=== PATIENT | female | born 1955 | race Two or more races ===

== ENCOUNTER 2020-09-25 16:40 | Inpatient (IN) | payer BC, MEDICAID ==
[~2020-09-25] VITALS: Ht 157.5 cm; Wt 115.0 kg
[2020-09-25] MEDS ORDERED: SODIUM CHLORIDE 0.9% 1,000 ML IVB ONE (17:30)
[2020-09-25] MEDS ORDERED: AZITHROMYCIN 500MG/ 250ML 250 ML IV ONE (18:00)
[2020-09-25] MEDS ORDERED: ACETAMINOPHEN 325 MG TAB PO ONE (18:00)
[2020-09-25] MEDS ORDERED: ASCORBIC ACID 500 MG TAB PO ONE (18:15)
[2020-09-25] MEDS ORDERED: ZINC SULFATE 220mg CAP or TAB PO ONE (18:15)
[2020-09-25] MEDS ORDERED: DexAMETHasone SOD PHOS 10MG/1ML VIAL INJ IV ONE (18:15)
[2020-09-25 18:38] LABS: Basophils # (auto) 0 10 ^3/uL (0-0.2); Basophils % (auto) 0.2 % (0.0-2.0); Eosinophils # (auto) 0 10 ^3/uL (0-0.8); Hemoglobin 10.7 g/dL (12.2-16.2); Lymphocytes # (auto) 0.8 10 ^3/uL (0.4-5.4); Lymphocytes % (auto) 11.3 % (10.0-50.0); Mean Corpuscular Hemoglobin 28.4 pg (28.0-32.0); Mean Corpuscular Hgb Conc. 34.6 g/dL (32.0-36.0); Mean Corpuscular Volume 82.1 fL (80.0-100.0); Monocytes # (auto) 0.3 10 ^3/uL (0-1.3); Neutrophils # (auto) 5.7 10 ^3/uL (1.6-8.6); Neutrophils % (auto) 83.5 % (37.0-80.0); Nucleated Red Blood Cells % 0.1 %; Platelet Count (auto) 316 10^3/uL (140-450); Red Blood Cells 3.78 10^6/uL (4.0-5.20); Red Cell Distribution Width 14.1 % (11.8-14.3); White Blood Cell 6.8 10^3/uL (4.4-10.8)
[2020-09-25 18:47] LABS: Albumin 2.5 g/dL (3.4-5.0); Anion Gap 7 (5-15); Blood Urea Nitrogen 14 mg/dL (7-18); Carbon Dioxide 24 mmol/L (21-32); Chloride 95 mmol/L (98-107); Glucose 325 mg/dL (74-106); Magnesium 2.3 mg/dL (1.6-2.6); Sodium 126 mmol/L (136-145)
[2020-09-25 18:53] LABS: Alanine Aminotransferase 28 U/L (13-56); Alkaline Phosphatase 46 U/L (45-117); Aspartate Aminotransferase 60 U/L (15-37); BUN/Creatinine Ratio 16.5; Bilirubin, Total 0.4 mg/dL (0.2-1.0); GFR African American 86 mL/min; GFR Non-African American 71 mL/min; Total Protein 7.1 g/dL (6.4-8.2)
[2020-09-25 18:56] LABS: Partial Thromboplastin Time 31.1 sec (23.0-31.2)
[2020-09-25] MEDS ORDERED: DEXTROSE (50%) 50ML SYRG IV PRN (21:00)
[2020-09-25] MEDS ORDERED: TEMAZEPAM 15 MG CAP PO PRN (21:00)
[2020-09-25] MEDS ORDERED: ONDANSETRON HCL 4 MG/2 ML VIAL IV PRN (21:00)
[2020-09-25] MEDS ORDERED: ACETAMINOPHEN 325 MG TAB PO PRN (21:00)
[2020-09-25] MEDS ORDERED: MORPHINE SULF INJ 2 MG/ML SYRINGE 1ML IV PRN (21:00)
[2020-09-25] MEDS ORDERED: REMDESIVIR PER PHARMACY 0 ML IV SCH (21:00)
[2020-09-25] MEDS ORDERED: SODIUM CHLORIDE 0.9% 1,000 ML IV SCH (21:00)
[2020-09-25] MEDS ORDERED: NITROGLYCERIN 0.4 MG SL TAB SL PRN (21:00)
[2020-09-25 21:35] LABS: CRP High Sensitivity 12.5 mg/dL (< 0.3)
[2020-09-25] MEDS ORDERED: REMDESIVIR 200 MG in NS 210ml LOADING DOSE ADULT IV ONE (22:00)
[2020-09-25] MEDS ORDERED: ATORVASTATIN 20 MG TAB PO SCH (22:00)
[2020-09-25] MEDS: FAMOTIDINE 20 MG TAB PO SCH (22:51)
[2020-09-25] MEDS: METOPROLOL TARTRATE 25 MG TAB PO SCH (22:51)
[2020-09-25] MEDS: ENOXAPARIN SOD 40 MG/0.4 ML SYRINGE SC SCH (22:51)
[2020-09-26] MEDS: ACCU-CHEK COMFORT CURVE STRIP VI SCH ×5 (01:17→18:16)
[2020-09-26] MEDS: InsuLIN REG 1unit/0.01ml Soln (100units/ml) SC SCH ×4 (01:20→18:15)
[2020-09-26] MEDS ORDERED: INSU100I49 SC (04:56)
[2020-09-26] MEDS ORDERED: METF-370 PO (04:56)
[2020-09-26] MEDS ORDERED: GLIP5TAB12 PO (05:53)
[2020-09-26 06:03] LABS: Basophils # (auto) 0 10 ^3/uL (0-0.2); Basophils % (auto) 0.2 % (0.0-2.0); Eosinophils # (auto) 0 10 ^3/uL (0-0.8); Hematocrit 31.9 % (36.0-46.0); Hemoglobin 10.9 g/dL (12.2-16.2); Lymphocytes # (auto) 0.6 10 ^3/uL (0.4-5.4); Lymphocytes % (auto) 8.3 % (10.0-50.0); Mean Corpuscular Hemoglobin 28.2 pg (28.0-32.0); Mean Corpuscular Hgb Conc. 34.3 g/dL (32.0-36.0); Mean Corpuscular Volume 82.2 fL (80.0-100.0); Monocytes # (auto) 0.3 10 ^3/uL (0-1.3); Neutrophils # (auto) 6.7 10 ^3/uL (1.6-8.6); Neutrophils % (auto) 87.5 % (37.0-80.0); Nucleated Red Blood Cells % 0.1 %; Platelet Count (auto) 335 10^3/uL (140-450); Red Blood Cells 3.88 10^6/uL (4.0-5.20); Red Cell Distribution Width 14.5 % (11.8-14.3); White Blood Cell 7.6 10^3/uL (4.4-10.8)
[2020-09-26 06:31] LABS: Potassium 4.1 mmol/L (3.5-5.1)
[2020-09-26 06:40] LABS: Albumin 2.2 g/dL (3.4-5.0); BUN/Creatinine Ratio 20.6; Bilirubin, Total 0.3 mg/dL (0.2-1.0); Calcium 8.1 mg/dL (8.5-10.1); Total Protein 6.8 g/dL (6.4-8.2)
[2020-09-26 08:00] VITALS: BP 130/60
[2020-09-26] MEDS: CHOLECALCIFEROL (VITD3) 2,000 UNIT CAP PO SCH (09:59)
[2020-09-26] MEDS ORDERED: amLODIPine BESYLATE 5 MG TAB PO SCH (10:00)
[2020-09-26] MEDS ORDERED: ASPirin 81 mg TAB PO SCH (10:00)
[2020-09-26] MEDS: ASCORBIC ACID 1,000 MG TAB PO SCH (10:00)
[2020-09-26] MEDS ORDERED: FUROSEMIDE 40 MG TAB PO SCH (10:00)
[2020-09-26] MEDS: AZITHROMYCIN 500MG/ 250ML 250 ML IV SCH (10:01)
[2020-09-26] MEDS: FAMOTIDINE 20 MG TAB PO SCH (10:05)
[2020-09-26] MEDS: METOPROLOL TARTRATE 25 MG TAB PO SCH (10:06)
[2020-09-26] MEDS: DexAMETHasone SOD PHOS 10MG/1ML VIAL INJ IV SCH (10:06)
[2020-09-26] MEDS: ZINC SULFATE 220mg CAP or TAB PO SCH (10:06)
[2020-09-26] MEDS: ENOXAPARIN SOD 40 MG/0.4 ML SYRINGE SC SCH (11:56)
[2020-09-26] MEDS ORDERED: FUROSEMIDE 20 MG/2 ML VIAL IV ONE (13:00)
[2020-09-26] MEDS ORDERED: POTASSIUM CHL 20 Meq TABLET PO ONE (13:00)
[2020-09-26] MEDS ORDERED: DEXTROSE (50%) 50ML SYRG IV PRN (13:00)
[2020-09-26 15:50] VITALS: BP 119/65
[2020-09-26] MEDS: REMDESIVIR 100mg 100 MG in SODIUM CHL 0.9% 230 ML IV SCH (16:11)
[2020-09-26] MEDS: ALBUTEROL SULF HFA 90MCG INH 200DOSE IN PRN (20:01)
[2020-09-26] MEDS: ENOXAPARIN SOD 100 MG/1 ML SYRINGE SC SCH (21:42)
[2020-09-26 22:55] LABS: Urine Bacteria FEW /hpf (None Seen); Urine Blood Negative /uL (Negative); Urine Hyaline Cast FEW /lpf (0 - 2); Urine Specific Gravity 1.008 (1.001-1.035); Urine WBC 3 /hpf (0 - 5)
[2020-09-27] VITALS: BP 120/50
[2020-09-27] MEDS: ACCU-CHEK COMFORT CURVE STRIP VI SCH ×10 (00:06→23:40)
[2020-09-27] MEDS: InsuLIN REG 1unit/0.01ml Soln (100units/ml) SC SCH ×5 (00:11→23:33)
[2020-09-27 06:22] LABS: Hematocrit 31.3 % (36.0-46.0); Hemoglobin 10.7 g/dL (12.2-16.2); Mean Corpuscular Hemoglobin 27.9 pg (28.0-32.0); Mean Corpuscular Hgb Conc. 34.1 g/dL (32.0-36.0); Platelet Count (auto) 390 10^3/uL (140-450); Red Blood Cells 3.82 10^6/uL (4.0-5.20); Red Cell Distribution Width 14.3 % (11.8-14.3); White Blood Cell 9.6 10^3/uL (4.4-10.8)
[2020-09-27 06:31] LABS: Basophils % (manual) 0 (0.0-2.0); Blast Cells 0; Eosinophils % (manual) 0 (0-7); Promyelocytes % 0; Reactive Lymphocytes 0
[2020-09-27 06:50] LABS: Potassium 3.8 mmol/L (3.5-5.1)
[2020-09-27 07:06] LABS: BUN/Creatinine Ratio 26.1; Calcium 8.4 mg/dL (8.5-10.1)
[2020-09-27 07:30] VITALS: BP 114/70
[2020-09-27 07:42] LABS: Band Neutrophils % (manual) 10; Lymphocytes % (manual) 14 (10.0-50.0); Metamyelocytes % 1; Monocytes % (manual) 6 (0-12); Myelocytes % 1
[2020-09-27] MEDS ORDERED: FUROSEMIDE 40 MG/4 ML VIAL ONE (09:59)
[2020-09-27] MEDS: FUROSEMIDE 20 MG/2 ML VIAL IV SCH (10:00)
[2020-09-27] MEDS: ASCORBIC ACID 1,000 MG TAB PO SCH (10:05)
[2020-09-27] MEDS: AZITHROMYCIN 500MG/ 250ML 250 ML IV SCH (10:05)
[2020-09-27] MEDS: POTASSIUM CHL 20 Meq TABLET PO SCH (10:05)
[2020-09-27] MEDS: ZINC SULFATE 220mg CAP or TAB PO SCH (10:05)
[2020-09-27] MEDS: DexAMETHasone SOD PHOS 10MG/1ML VIAL INJ IV SCH (10:06)
[2020-09-27] MEDS: ENOXAPARIN SOD 100 MG/1 ML SYRINGE SC SCH ×2 (10:07→23:31)
[2020-09-27] MEDS: CHOLECALCIFEROL (VITD3) 2,000 UNIT CAP PO SCH (11:44)
[2020-09-27] MEDS ORDERED: methylPREDNISolone SOD SUCC 40 MG/ML VL IV ONE (13:00)
[2020-09-27] MEDS ORDERED: ACETAMINOPHEN 650 mg PER 20.3 mL UD PO ONE (13:00)
[2020-09-27] MEDS ORDERED: diphenhdrAMINE HCL 50 MG/1 ML VL IV ONE (13:00)
[2020-09-27] MEDS ORDERED: TOCILIZUMAB 400 MG in SODIUM CHL 0.9% 80 ML IV ONE (14:00)
[2020-09-27] MEDS: REMDESIVIR 100mg 100 MG in SODIUM CHL 0.9% 230 ML IV SCH (15:18)
[2020-09-27] MEDS ORDERED: TRAZ50TA2 PO (15:42)
[2020-09-27] MEDS ORDERED: ALEN35TA18 PO ×2 (15:43→16:42)
[2020-09-27] MEDS ORDERED: ENAL2.5T7 PO (15:45)
[2020-09-27 16:00] VITALS: BP 140/52
[2020-09-27] MEDS ORDERED: ATOR40TA52 PO (16:20)
[2020-09-27] MEDS ORDERED: ENAL20TA8 PO (16:20)
[2020-09-27] MEDS ORDERED: INSU100I43 SC (16:22)
[2020-09-27] MEDS ORDERED: INSUINJ37 SC (16:22)
[2020-09-27] MEDS ORDERED: GLIP10TA9 PO (16:22)
[2020-09-27] MEDS ORDERED: METF-372 PO (16:23)
[2020-09-27] MEDS ORDERED: ALBUAER3 IN (16:23)
[2020-09-27] MEDS ORDERED: ASPI-266 PO (16:24)
[2020-09-27] MEDS ORDERED: CHOL20009 PO (16:25)
[2020-09-27] MEDS ORDERED: AMLO-489 PO (16:25)
[2020-09-27] MEDS ORDERED: MET25T PO (16:26)
[2020-09-27] MEDS ORDERED: FAMO-12 PO (16:26)
[2020-09-27] MEDS ORDERED: FURO40TA4 PO (16:26)
[2020-09-27] MEDS ORDERED: CALC500T6 PO (16:28)
[2020-09-27] MEDS: ALBUTEROL SULF HFA 90MCG INH 200DOSE IN PRN (22:12)
[2020-09-28] VITALS: BP 126/66
[2020-09-28 00:29] VITALS: BP 126/66
[2020-09-28 00:46] VITALS: BP 125/64
[2020-09-28 02:07] VITALS: BP 128/60
[2020-09-28] MEDS: InsuLIN REG 1unit/0.01ml Soln (100units/ml) SC SCH ×3 (05:41→17:50)
[2020-09-28] MEDS: ACCU-CHEK COMFORT CURVE STRIP VI SCH ×5 (05:41→17:32)
[2020-09-28 08:00] VITALS: BP 114/54
[2020-09-28] MEDS ORDERED: diphenhdrAMINE HCL 50 MG/1 ML VL IV ONE (10:00)
[2020-09-28] MEDS ORDERED: ACETAMINOPHEN 650 mg PER 20.3 mL UD PO ONE (10:00)
[2020-09-28] MEDS: FUROSEMIDE 20 MG/2 ML VIAL IV SCH (10:28)
[2020-09-28] MEDS: POTASSIUM CHL 20 Meq TABLET PO SCH (10:29)
[2020-09-28] MEDS: DexAMETHasone SOD PHOS 10MG/1ML VIAL INJ IV SCH (10:29)
[2020-09-28] MEDS: AZITHROMYCIN 500MG/ 250ML 250 ML IV SCH (10:29)
[2020-09-28] MEDS: ZINC SULFATE 220mg CAP or TAB PO SCH (10:29)
[2020-09-28] MEDS: ASCORBIC ACID 1,000 MG TAB PO SCH (10:30)
[2020-09-28] MEDS: CHOLECALCIFEROL (VITD3) 2,000 UNIT CAP PO SCH (10:30)
[2020-09-28] MEDS ORDERED: TOCILIZUMAB 400 MG in SODIUM CHL 0.9% 80 ML IV ONE (10:30)
[2020-09-28] MEDS: ENOXAPARIN SOD 100 MG/1 ML SYRINGE SC SCH (10:30)
[2020-09-28] MEDS: ALBUTEROL SULF HFA 90MCG INH 200DOSE IN PRN ×2 (11:34→20:24)
[2020-09-28] MEDS: REMDESIVIR 100mg 100 MG in SODIUM CHL 0.9% 230 ML IV SCH (14:48)
[2020-09-28 16:00] VITALS: BP 132/68
[2020-09-28] MEDS: guaiFENesin-CODEINE Liq 5 ML UD PO PRN (16:03)
[2020-09-28] MEDS ORDERED: DEXTROSE (50%) 50ML SYRG IV PRN (16:15)
[2020-09-29] VITALS: BP 156/82
[2020-09-29] MEDS: ENOXAPARIN SOD 100 MG/1 ML SYRINGE SC SCH ×3 (00:14→23:01)
[2020-09-29] MEDS: ACCU-CHEK COMFORT CURVE STRIP VI SCH ×5 (00:14→23:01)
[2020-09-29] MEDS: INSULIN LANTUS (GLARGINE) 1 /0.01ml (100units/ml) SC SCH ×3 (00:17→23:04)
[2020-09-29] MEDS: InsuLIN REG 1unit/0.01ml Soln (100units/ml) SC SCH ×5 (00:17→23:04)
[2020-09-29] MEDS: ALBUTEROL SULF HFA 90MCG INH 200DOSE IN PRN ×2 (07:19→19:34)
[2020-09-29 08:00] VITALS: BP 129/63
[2020-09-29 08:44] LABS: Hematocrit 32.1 % (36.0-46.0); Mean Corpuscular Hemoglobin 28.2 pg (28.0-32.0); Mean Corpuscular Hgb Conc. 34.4 g/dL (32.0-36.0); Mean Corpuscular Volume 81.9 fL (80.0-100.0); Platelet Count (auto) 501 10^3/uL (140-450); Red Blood Cells 3.92 10^6/uL (4.0-5.20); Red Cell Distribution Width 14.2 % (11.8-14.3); White Blood Cell 8.2 10^3/uL (4.4-10.8)
[2020-09-29 08:53] LABS: Band Neutrophils % (manual) 0; Basophils % (manual) 0 (0.0-2.0); Blast Cells 0; Eosinophils % (manual) 0 (0-7); Reactive Lymphocytes 0
[2020-09-29 09:04] LABS: Albumin 2.3 g/dL (3.4-5.0); Calcium 8.8 mg/dL (8.5-10.1); Potassium 3.7 mmol/L (3.5-5.1)
[2020-09-29 09:07] LABS: BUN/Creatinine Ratio 41.2; Bilirubin, Total 0.4 mg/dL (0.2-1.0); Total Protein 6.6 g/dL (6.4-8.2)
[2020-09-29] MEDS: DexAMETHasone SOD PHOS 10MG/1ML VIAL INJ IV SCH (09:08)
[2020-09-29] MEDS: POTASSIUM CHL 20 Meq TABLET PO SCH (09:09)
[2020-09-29] MEDS: ZINC SULFATE 220mg CAP or TAB PO SCH (09:09)
[2020-09-29] MEDS: ASCORBIC ACID 1,000 MG TAB PO SCH (09:09)
[2020-09-29] MEDS: FUROSEMIDE 20 MG/2 ML VIAL IV SCH (09:09)
[2020-09-29] MEDS: AZITHROMYCIN 500MG/ 250ML 250 ML IV SCH (09:09)
[2020-09-29] MEDS: CHOLECALCIFEROL (VITD3) 2,000 UNIT CAP PO SCH (09:10)
[2020-09-29] MEDS: guaiFENesin-CODEINE Liq 5 ML UD PO PRN (09:11)
[2020-09-29 09:48] LABS: Lymphocytes % (manual) 16 (10.0-50.0); Metamyelocytes % 2; Monocytes % (manual) 4 (0-12); Myelocytes % 1; Promyelocytes % 1
[2020-09-29] MEDS: REMDESIVIR 100mg 100 MG in SODIUM CHL 0.9% 230 ML IV SCH (14:52)
[2020-09-29 16:23] VITALS: BP 139/79
[2020-09-30 00:03] VITALS: BP 135/69
[2020-09-30] MEDS: ACCU-CHEK COMFORT CURVE STRIP VI SCH ×4 (05:51→23:03)
[2020-09-30] MEDS: InsuLIN REG 1unit/0.01ml Soln (100units/ml) SC SCH ×4 (05:52→23:05)
[2020-09-30] MEDS: ALBUTEROL SULF HFA 90MCG INH 200DOSE IN PRN (07:42)
[2020-09-30 08:00] VITALS: BP 137/62
[2020-09-30] MEDS: guaiFENesin-CODEINE Liq 5 ML UD PO PRN (10:10)
[2020-09-30] MEDS: AZITHROMYCIN 500MG/ 250ML 250 ML IV SCH (10:21)
[2020-09-30] MEDS: DexAMETHasone SOD PHOS 10MG/1ML VIAL INJ IV SCH (10:21)
[2020-09-30] MEDS: POTASSIUM CHL 20 Meq TABLET PO SCH ×2 (10:22→23:03)
[2020-09-30] MEDS: INSULIN LANTUS (GLARGINE) 1 /0.01ml (100units/ml) SC SCH ×2 (10:22→23:04)
[2020-09-30] MEDS: ASCORBIC ACID 1,000 MG TAB PO SCH (10:22)
[2020-09-30] MEDS: ZINC SULFATE 220mg CAP or TAB PO SCH (10:22)
[2020-09-30] MEDS: ENOXAPARIN SOD 100 MG/1 ML SYRINGE SC SCH ×2 (10:23→23:03)
[2020-09-30] MEDS: CHOLECALCIFEROL (VITD3) 2,000 UNIT CAP PO SCH (10:23)
[2020-09-30] MEDS ORDERED: FUROSEMIDE 40 MG/4 ML VIAL ONE (11:32)
[2020-09-30] MEDS: FUROSEMIDE 20 MG/2 ML VIAL IV SCH (11:47)
[2020-09-30 16:00] VITALS: BP 133/71
[2020-09-30] MEDS: FUROSEMIDE 40 MG/4 ML VIAL IV SCH (17:30)
[2020-10-01] VITALS: BP 146/84
[2020-10-01 04:05] VITALS: BP 146/84
[2020-10-01] MEDS: FUROSEMIDE 40 MG/4 ML VIAL IV SCH ×2 (05:39→18:07)
[2020-10-01 05:55] VITALS: BP 141/82
[2020-10-01] MEDS: ALBUTEROL SULF HFA 90MCG INH 200DOSE IN PRN ×2 (05:55→18:56)
[2020-10-01] MEDS: ACCU-CHEK COMFORT CURVE STRIP VI SCH ×4 (05:57→23:16)
[2020-10-01] MEDS: InsuLIN REG 1unit/0.01ml Soln (100units/ml) SC SCH ×4 (06:00→23:15)
[2020-10-01 08:00] VITALS: BP 154/76
[2020-10-01] MEDS ORDERED: ETOMIDATE (2MG/ML) 20ML VIAL IV ONE (09:40)
[2020-10-01] MEDS ORDERED: SUCCINYLCHOLINE CHLORIDE 20 MG/ML 10ML VIAL IV ONE (09:40)
[2020-10-01] MEDS ORDERED: ROCURONIUM 10MG/ML 10ML VIAL IV ONE (09:40)
[2020-10-01] MEDS: DexAMETHasone SOD PHOS 10MG/1ML VIAL INJ IV SCH ×2 (09:50→23:16)
[2020-10-01] MEDS: ENOXAPARIN SOD 100 MG/1 ML SYRINGE SC SCH ×2 (09:52→23:16)
[2020-10-01] MEDS: CHOLECALCIFEROL (VITD3) 2,000 UNIT CAP PO SCH (09:52)
[2020-10-01] MEDS: POTASSIUM CHL 20 Meq TABLET PO SCH ×2 (09:52→22:00)
[2020-10-01] MEDS: ASCORBIC ACID 1,000 MG TAB PO SCH (09:52)
[2020-10-01] MEDS: ZINC SULFATE 220mg CAP or TAB PO SCH (09:52)
[2020-10-01] MEDS: INSULIN LANTUS (GLARGINE) 1 /0.01ml (100units/ml) SC SCH ×2 (09:53→23:14)
[2020-10-01 11:30] VITALS: BP 144/62
[2020-10-01 16:00] VITALS: BP 126/72
[2020-10-02] VITALS: BP 134/78
[2020-10-02] MEDS: FUROSEMIDE 40 MG/4 ML VIAL IV SCH ×2 (05:47→17:04)
[2020-10-02] MEDS: ACCU-CHEK COMFORT CURVE STRIP VI SCH ×4 (05:47→23:16)
[2020-10-02] MEDS: InsuLIN REG 1unit/0.01ml Soln (100units/ml) SC SCH ×4 (05:52→23:08)
[2020-10-02 07:05] LABS: Basophils # (auto) 0 10 ^3/uL (0-0.2); Basophils % (auto) 0.3 % (0.0-2.0); Eosinophils # (auto) 0 10 ^3/uL (0-0.8); Monocytes % (auto) 2.1 % (0.0-12.0); Nucleated Red Blood Cells % 0.1 %
[2020-10-02 07:08] LABS: Eosinophils % (auto) 0.2 % (0.0-7.0); Hematocrit 36.9 % (36.0-46.0); Hemoglobin 12.6 g/dL (12.2-16.2); Lymphocytes % (auto) 8.7 % (10.0-50.0); Mean Corpuscular Hemoglobin 27.9 pg (28.0-32.0); Mean Corpuscular Hgb Conc. 34.1 g/dL (32.0-36.0); Mean Corpuscular Volume 81.7 fL (80.0-100.0); Monocytes # (auto) 0.2 10 ^3/uL (0-1.3); Neutrophils # (auto) 10.4 10 ^3/uL (1.6-8.6); Neutrophils % (auto) 88.7 % (37.0-80.0); Platelet Count (auto) 579 10^3/uL (140-450); Red Blood Cells 4.52 10^6/uL (4.0-5.20); Red Cell Distribution Width 14.2 % (11.8-14.3); White Blood Cell 11.7 10^3/uL (4.4-10.8)
[2020-10-02 07:30] LABS: Potassium 3.7 mmol/L (3.5-5.1)
[2020-10-02 07:37] LABS: Albumin 2.9 g/dL (3.4-5.0); BUN/Creatinine Ratio 51.4; Bilirubin, Total 0.8 mg/dL (0.2-1.0); Calcium 8.9 mg/dL (8.5-10.1); Total Protein 7.6 g/dL (6.4-8.2)
[2020-10-02 08:00] VITALS: BP 144/76
[2020-10-02] MEDS: INSULIN LANTUS (GLARGINE) 1 /0.01ml (100units/ml) SC SCH ×2 (09:30→23:08)
[2020-10-02] MEDS: ENOXAPARIN SOD 100 MG/1 ML SYRINGE SC SCH ×2 (09:32→23:15)
[2020-10-02] MEDS: DexAMETHasone SOD PHOS 10MG/1ML VIAL INJ IV SCH ×2 (09:33→23:01)
[2020-10-02] MEDS: ASCORBIC ACID 1,000 MG TAB PO SCH (09:33)
[2020-10-02] MEDS: POTASSIUM CHL 20 Meq TABLET PO SCH ×2 (09:33→22:00)
[2020-10-02] MEDS: CHOLECALCIFEROL (VITD3) 2,000 UNIT CAP PO SCH (09:33)
[2020-10-02] MEDS: ZINC SULFATE 220mg CAP or TAB PO SCH (09:33)
[2020-10-02 14:00] VITALS: BP 144/75
[2020-10-02 15:57] LABS: INR 1.3 (0.9-1.15); Partial Thromboplastin Time 28.8 sec (23.0-31.2)
[2020-10-02 16:00] VITALS: BP 144/75
[2020-10-02] MEDS: ALBUTEROL SULF HFA 90MCG INH 200DOSE IN PRN (20:38)
[2020-10-02 23:30] VITALS: BP 134/78
[2020-10-03 05:53] LABS: Hematocrit 37.6 % (36.0-46.0); Hemoglobin 12.8 g/dL (12.2-16.2); Mean Corpuscular Hemoglobin 28.5 pg (28.0-32.0); Mean Corpuscular Hgb Conc. 34.2 g/dL (32.0-36.0); Mean Corpuscular Volume 83.3 fL (80.0-100.0); Platelet Count (auto) 499 10^3/uL (140-450); Red Blood Cells 4.51 10^6/uL (4.0-5.20); Red Cell Distribution Width 14.4 % (11.8-14.3); White Blood Cell 12.7 10^3/uL (4.4-10.8)
[2020-10-03] MEDS: ACCU-CHEK COMFORT CURVE STRIP VI SCH ×3 (06:08→18:00)
[2020-10-03] MEDS: FUROSEMIDE 40 MG/4 ML VIAL IV SCH ×2 (06:09→18:00)
[2020-10-03 06:11] LABS: Calcium 9.3 mg/dL (8.5-10.1); Potassium 3.6 mmol/L (3.5-5.1)
[2020-10-03] MEDS: InsuLIN REG 1unit/0.01ml Soln (100units/ml) SC SCH ×3 (06:11→18:00)
[2020-10-03 06:14] LABS: BUN/Creatinine Ratio 60.5; Bilirubin, Total 0.8 mg/dL (0.2-1.0); Total Protein 7.6 g/dL (6.4-8.2)
[2020-10-03 06:57] LABS: Basophils % (manual) 0 (0.0-2.0); Blast Cells 0; Eosinophils % (manual) 0 (0-7); Promyelocytes % 0; Reactive Lymphocytes 0
[2020-10-03 08:00] VITALS: BP 145/69
[2020-10-03 08:38] LABS: Band Neutrophils % (manual) 9; Lymphocytes % (manual) 12 (10.0-50.0); Metamyelocytes % 1; Monocytes % (manual) 2 (0-12); Myelocytes % 1
[2020-10-03] MEDS: CHOLECALCIFEROL (VITD3) 2,000 UNIT CAP PO SCH (10:21)
[2020-10-03] MEDS: ASCORBIC ACID 1,000 MG TAB PO SCH (10:21)
[2020-10-03] MEDS: DexAMETHasone SOD PHOS 10MG/1ML VIAL INJ IV SCH ×2 (10:21→22:20)
[2020-10-03] MEDS: ENOXAPARIN SOD 100 MG/1 ML SYRINGE SC SCH ×2 (10:21→22:20)
[2020-10-03] MEDS: ZINC SULFATE 220mg CAP or TAB PO SCH (10:21)
[2020-10-03] MEDS: POTASSIUM CHL 20 Meq TABLET PO SCH ×2 (10:21→22:20)
[2020-10-03] MEDS: INSULIN LANTUS (GLARGINE) 1 /0.01ml (100units/ml) SC SCH ×2 (10:30→22:20)
[2020-10-03] MEDS ORDERED: LIDOCAINE 1% (LOCAL ANESTH.) PF 5ml SDV ID ONE (13:45)
[2020-10-03 16:00] VITALS: BP 131/76
[2020-10-03] MEDS: ALBUTEROL SULF HFA 90MCG INH 200DOSE IN PRN (22:04)
[2020-10-03] MEDS: SODIUM CHLOR 0.9% PF (SALINE LOCK) 10ML VIAL/SYR IV SCH (22:20)
[2020-10-04] VITALS: BP 137/73
[2020-10-04] MEDS: ACCU-CHEK COMFORT CURVE STRIP VI SCH ×5 (00:10→23:52)
[2020-10-04] MEDS: InsuLIN REG 1unit/0.01ml Soln (100units/ml) SC SCH ×5 (00:18→23:48)
[2020-10-04] MEDS: LORazepam 2MG/ML-1ML VIAL IV PRN (04:42)
[2020-10-04] MEDS: FUROSEMIDE 40 MG/4 ML VIAL IV SCH ×2 (06:00→18:03)
[2020-10-04 08:00] VITALS: BP 153/82
[2020-10-04] MEDS ORDERED: TPN PER PHARMACY 0 ML IV SCH (08:30)
[2020-10-04] MEDS: DexAMETHasone SOD PHOS 10MG/1ML VIAL INJ IV SCH ×2 (09:11→22:25)
[2020-10-04] MEDS: POTASSIUM CHL 20 Meq TABLET PO SCH ×2 (09:12→22:00)
[2020-10-04] MEDS: ASCORBIC ACID 1,000 MG TAB PO SCH (09:12)
[2020-10-04] MEDS: CHOLECALCIFEROL (VITD3) 2,000 UNIT CAP PO SCH (09:12)
[2020-10-04] MEDS: ENOXAPARIN SOD 100 MG/1 ML SYRINGE SC SCH ×2 (09:12→22:25)
[2020-10-04] MEDS: ZINC SULFATE 220mg CAP or TAB PO SCH (09:12)
[2020-10-04] MEDS: SODIUM CHLOR 0.9% PF (SALINE LOCK) 10ML VIAL/SYR IV SCH ×2 (09:13→22:24)
[2020-10-04] MEDS: INSULIN LANTUS (GLARGINE) 1 /0.01ml (100units/ml) SC SCH ×2 (10:00→22:23)
[2020-10-04 11:36] LABS: Albumin 3.2 g/dL (3.4-5.0); Calcium 9.4 mg/dL (8.5-10.1); Potassium 3.5 mmol/L (3.5-5.1)
[2020-10-04 11:42] LABS: BUN/Creatinine Ratio 51.6; Magnesium 2.8 mg/dL (1.6-2.6); Pre Albumin 25.3 mg/dL (20.0-40.0); Total Protein 8.3 g/dL (6.4-8.2)
[2020-10-04 16:00] VITALS: BP 132/78
[2020-10-04] MEDS: ALBUTEROL SULF HFA 90MCG INH 200DOSE IN PRN (19:18)
[2020-10-04] MEDS ORDERED: TPN PER PHARMACY IV NR ×7 (20:00)
[2020-10-05] VITALS: BP 125/71
[2020-10-05 00:29] VITALS: BP 133/77
[2020-10-05] MEDS: FUROSEMIDE 40 MG/4 ML VIAL IV SCH ×2 (06:23→18:12)
[2020-10-05] MEDS: InsuLIN REG 1unit/0.01ml Soln (100units/ml) SC SCH ×3 (06:24→18:14)
[2020-10-05] MEDS: ACCU-CHEK COMFORT CURVE STRIP VI SCH ×3 (06:28→18:13)
[2020-10-05 07:24] LABS: Calcium 8.9 mg/dL (8.5-10.1); Magnesium 2.8 mg/dL (1.6-2.6); Potassium 3.9 mmol/L (3.5-5.1)
[2020-10-05 07:30] LABS: Albumin 2.9 g/dL (3.4-5.0); BUN/Creatinine Ratio 53.9; Bilirubin, Total 0.8 mg/dL (0.2-1.0); Phosphorus 2.6 mg/dL (2.5-4.90); Total Protein 7.4 g/dL (6.4-8.2)
[2020-10-05 08:00] VITALS: BP 136/71
[2020-10-05] MEDS: POTASSIUM CHL 20 Meq TABLET PO SCH ×2 (09:48→21:56)
[2020-10-05] MEDS: ZINC SULFATE 220mg CAP or TAB PO SCH (09:48)
[2020-10-05] MEDS: CHOLECALCIFEROL (VITD3) 2,000 UNIT CAP PO SCH (09:48)
[2020-10-05] MEDS: SODIUM CHLOR 0.9% PF (SALINE LOCK) 10ML VIAL/SYR IV SCH ×2 (09:48→21:55)
[2020-10-05] MEDS: ASCORBIC ACID 1,000 MG TAB PO SCH (09:48)
[2020-10-05] MEDS: DexAMETHasone SOD PHOS 10MG/1ML VIAL INJ IV SCH ×2 (09:48→21:47)
[2020-10-05] MEDS: ENOXAPARIN SOD 100 MG/1 ML SYRINGE SC SCH ×2 (09:49→21:47)
[2020-10-05] MEDS: INSULIN LANTUS (GLARGINE) 1 /0.01ml (100units/ml) SC SCH ×2 (10:19→21:47)
[2020-10-05] MEDS ORDERED: INSULIN LANTUS (GLARGINE) 1 /0.01ml (100units/ml) SC ONE (11:30)
[2020-10-05] MEDS: LORazepam 2MG/ML-1ML VIAL IV PRN (13:45)
[2020-10-05 16:00] VITALS: BP 124/84
[2020-10-05] MEDS ORDERED: TPN PER PHARMACY IV NR ×9 (20:00)
[2020-10-06] VITALS: BP 125/71
[2020-10-06] MEDS: InsuLIN REG 1unit/0.01ml Soln (100units/ml) SC SCH ×4 (00:41→18:09)
[2020-10-06] MEDS: LORazepam 2MG/ML-1ML VIAL IV PRN ×3 (03:49→14:35)
[2020-10-06 05:57] LABS: Basophils # (auto) 0 10 ^3/uL (0-0.2); Basophils % (auto) 0.1 % (0.0-2.0); Eosinophils # (auto) 0.1 10 ^3/uL (0-0.8); Eosinophils % (auto) 0.3 % (0.0-7.0); Hematocrit 42.5 % (36.0-46.0); Hemoglobin 14.1 g/dL (12.2-16.2); Lymphocytes # (auto) 0.5 10 ^3/uL (0.4-5.4); Mean Corpuscular Hemoglobin 28.4 pg (28.0-32.0); Mean Corpuscular Hgb Conc. 33.3 g/dL (32.0-36.0); Mean Corpuscular Volume 85.1 fL (80.0-100.0); Monocytes # (auto) 0.3 10 ^3/uL (0-1.3); Monocytes % (auto) 1.6 % (0.0-12.0); Neutrophils # (auto) 16.1 10 ^3/uL (1.6-8.6); Nucleated Red Blood Cells % 0.1 %; Platelet Count (auto) 305 10^3/uL (140-450); Red Blood Cells 4.99 10^6/uL (4.0-5.20); Red Cell Distribution Width 15.1 % (11.8-14.3); White Blood Cell 16.9 10^3/uL (4.4-10.8)
[2020-10-06 06:01] LABS: Potassium 3.8 mmol/L (3.5-5.1)
[2020-10-06 06:14] LABS: Albumin 3.1 g/dL (3.4-5.0); BUN/Creatinine Ratio 58.7; Bilirubin, Total 0.8 mg/dL (0.2-1.0); Calcium 9.1 mg/dL (8.5-10.1); Magnesium 2.7 mg/dL (1.6-2.6); Phosphorus 2.8 mg/dL (2.5-4.90); Total Protein 7.9 g/dL (6.4-8.2)
[2020-10-06] MEDS: ACCU-CHEK COMFORT CURVE STRIP VI SCH ×4 (06:29→18:07)
[2020-10-06] MEDS: FUROSEMIDE 40 MG/4 ML VIAL IV SCH ×2 (06:29→18:07)
[2020-10-06 07:54] VITALS: BP 143/98
[2020-10-06] MEDS: CHOLECALCIFEROL (VITD3) 2,000 UNIT CAP PO SCH (10:00)
[2020-10-06] MEDS: POTASSIUM CHL 20 Meq TABLET PO SCH ×2 (10:00→22:00)
[2020-10-06] MEDS: ASCORBIC ACID 1,000 MG TAB PO SCH (10:00)
[2020-10-06] MEDS: ZINC SULFATE 220mg CAP or TAB PO SCH (10:00)
[2020-10-06] MEDS: SODIUM CHLOR 0.9% PF (SALINE LOCK) 10ML VIAL/SYR IV SCH ×2 (10:27→22:00)
[2020-10-06] MEDS: DexAMETHasone SOD PHOS 10MG/1ML VIAL INJ IV SCH ×2 (10:45→22:33)
[2020-10-06] MEDS: ENOXAPARIN SOD 100 MG/1 ML SYRINGE SC SCH ×2 (10:46→22:33)
[2020-10-06] MEDS: INSULIN LANTUS (GLARGINE) 1 /0.01ml (100units/ml) SC SCH ×2 (10:54→22:23)
[2020-10-06] MEDS ORDERED: METOPROLOL TARTRATE 1MG/1ML-5ML VIAL IV ONE (12:15)
[2020-10-06] MEDS ORDERED: dilTIAZem 25 MG/5 ML VIAL IV ONE (13:00)
[2020-10-06] MEDS ORDERED: ADENOSINE 6 MG/2 ML INJ IV ONE (13:15)
[2020-10-06] MEDS ORDERED: DIGOXIN (250MCG/ML) 2 ML AMPULE IV ONE (14:45)
[2020-10-06 16:00] VITALS: BP 150/76
[2020-10-06 17:49] VITALS: BP 150/76
[2020-10-06 17:51] VITALS: BP 150/76
[2020-10-06] MEDS: dilTIAZem 25 MG/5 ML VIAL IV SCH (18:07)
[2020-10-06] MEDS ORDERED: TPN PER PHARMACY IV NR ×9 (20:00)
[2020-10-06] MEDS ORDERED: PPN PER PHARMACY IV NR ×9 (20:00)
[2020-10-07] VITALS: BP 116/76
[2020-10-07] MEDS: dilTIAZem 25 MG/5 ML VIAL IV SCH ×4 (00:07→17:16)
[2020-10-07] MEDS: InsuLIN REG 1unit/0.01ml Soln (100units/ml) SC SCH ×4 (00:51→17:17)
[2020-10-07] MEDS: FUROSEMIDE 40 MG/4 ML VIAL IV SCH ×2 (06:09→17:16)
[2020-10-07] MEDS: ACCU-CHEK COMFORT CURVE STRIP VI SCH ×4 (06:09→18:15)
[2020-10-07 06:19] LABS: Basophils # (auto) 0 10 ^3/uL (0-0.2); Basophils % (auto) 0.2 % (0.0-2.0); Eosinophils # (auto) 0 10 ^3/uL (0-0.8); Eosinophils % (auto) 0.2 % (0.0-7.0); Hematocrit 43.1 % (36.0-46.0); Hemoglobin 14.6 g/dL (12.2-16.2); Lymphocytes # (auto) 0.8 10 ^3/uL (0.4-5.4); Lymphocytes % (auto) 4.1 % (10.0-50.0); Mean Corpuscular Hemoglobin 28.9 pg (28.0-32.0); Mean Corpuscular Hgb Conc. 33.9 g/dL (32.0-36.0); Mean Corpuscular Volume 85.3 fL (80.0-100.0); Monocytes # (auto) 0.3 10 ^3/uL (0-1.3); Monocytes % (auto) 1.7 % (0.0-12.0); Neutrophils # (auto) 18.5 10 ^3/uL (1.6-8.6); Neutrophils % (auto) 93.8 % (37.0-80.0); Nucleated Red Blood Cells % 0.1 %; Platelet Count (auto) 255 10^3/uL (140-450); Red Blood Cells 5.06 10^6/uL (4.0-5.20); Red Cell Distribution Width 15.3 % (11.8-14.3); White Blood Cell 19.7 10^3/uL (4.4-10.8)
[2020-10-07 06:29] LABS: Potassium 3.9 mmol/L (3.5-5.1)
[2020-10-07 07:04] LABS: BUN/Creatinine Ratio 74.3; Bilirubin, Total 0.8 mg/dL (0.2-1.0); Calcium 9.3 mg/dL (8.5-10.1); Magnesium 2.7 mg/dL (1.6-2.6)
[2020-10-07 08:00] VITALS: BP 117/89
[2020-10-07] MEDS: POTASSIUM CHL 20 Meq TABLET PO SCH ×2 (10:00→22:40)
[2020-10-07] MEDS: DexAMETHasone SOD PHOS 10MG/1ML VIAL INJ IV SCH ×2 (10:00→22:44)
[2020-10-07] MEDS: ASCORBIC ACID 1,000 MG TAB PO SCH (10:00)
[2020-10-07] MEDS: CHOLECALCIFEROL (VITD3) 2,000 UNIT CAP PO SCH (10:00)
[2020-10-07] MEDS: ZINC SULFATE 220mg CAP or TAB PO SCH (10:00)
[2020-10-07] MEDS: ENOXAPARIN SOD 100 MG/1 ML SYRINGE SC SCH ×2 (12:14→22:45)
[2020-10-07] MEDS: INSULIN LANTUS (GLARGINE) 1 /0.01ml (100units/ml) SC SCH ×2 (12:15→22:44)
[2020-10-07] MEDS: LORazepam 2MG/ML-1ML VIAL IV PRN ×2 (15:30→19:00)
[2020-10-07 16:00] VITALS: BP 108/89
[2020-10-07] MEDS: SODIUM CHLOR 0.9% PF (SALINE LOCK) 10ML VIAL/SYR IV SCH ×2 (17:15→22:44)
[2020-10-07] MEDS ORDERED: TPN PER PHARMACY IV NR ×9 (20:00)
[2020-10-08] VITALS (59 sets, daily range): BP systolic 0–170; BP diastolic 14–100
[2020-10-08] MEDS ORDERED: AMIODARONE HCL 150 MG in D5W 5% 100 ML IV ONE ×2
[2020-10-08] MEDS ORDERED: AMIODARONE HCL (50 MG/ ML) 3 ML VIAL IV ONE (00:09)
[2020-10-08] MEDS ORDERED: AMIODARONE 450mg/250ml AE 250 ML IV ONE (00:09)
[2020-10-08] MEDS: InsuLIN REG 1unit/0.01ml Soln (100units/ml) SC SCH ×5 (00:15→23:31)
[2020-10-08] MEDS ORDERED: AMIODARONE 450mg/250ml AE 250 ML IV SCH (00:15)
[2020-10-08] MEDS: ACCU-CHEK COMFORT CURVE STRIP VI SCH ×5 (00:15→23:30)
[2020-10-08] MEDS ORDERED: SUCCINYLCHOLINE CHLORIDE 20 MG/ML 10ML VIAL IV ONE ×2 (02:53→03:15)
[2020-10-08] MEDS ORDERED: ETOMIDATE (2MG/ML) 20ML VIAL IV ONE ×2 (02:53→03:15)
[2020-10-08] MEDS: MIDAZOLAM DRIP 50 mg/50mL 50 ML IV SCH ×2 (03:10→07:09)
[2020-10-08] MEDS ORDERED: ACETAMINOPHEN 650 mg PER 20.3 mL UD GT PRN (04:00)
[2020-10-08] MEDS ORDERED: ALBUTEROL SULF 2.5 MG/0.5ML(0.5%) NEB SOLN NEB PRN (04:00)
[2020-10-08] MEDS: NOREPINEPHRINE 8 MG/250ML KIT 250 ML IV SCH ×3 (04:05→16:43)
[2020-10-08] MEDS ORDERED: SODIUM CHLORIDE 0.9% 500 ML IV ONE (04:15)
[2020-10-08] MEDS: SODIUM CHLORIDE 0.9% 1,000 ML IV SCH ×2 (04:15→12:13)
[2020-10-08] MEDS ORDERED: NOREPINEPHRINE 8 MG/250ML KIT 250 ML IV ONE (04:21)
[2020-10-08] MEDS: PHENYLEPHRINE IV 250 ML IV SCH ×4 (04:35→16:43)
[2020-10-08] MEDS ORDERED: PHENYLEPHRINE IV 250 ML IV ONE (04:37)
[2020-10-08] MEDS: VASOPRESSIN 50 UNITS in D5W 5% 247.5 ML IV SCH ×2 (04:45→16:42)
[2020-10-08 04:58] LABS: Basophils # (auto) 0.2 10 ^3/uL (0-0.2); Basophils % (auto) 0.8 % (0.0-2.0); Eosinophils # (auto) 0 10 ^3/uL (0-0.8); Eosinophils % (auto) 0.2 % (0.0-7.0); Hematocrit 41.6 % (36.0-46.0); Hemoglobin 12.5 g/dL (12.2-16.2); Lymphocytes # (auto) 2.6 10 ^3/uL (0.4-5.4); Lymphocytes % (auto) 13.6 % (10.0-50.0); Mean Corpuscular Hemoglobin 28.4 pg (28.0-32.0); Mean Corpuscular Volume 94.5 fL (80.0-100.0); Monocytes # (auto) 0.3 10 ^3/uL (0-1.3); Monocytes % (auto) 1.4 % (0.0-12.0); Neutrophils # (auto) 15.8 10 ^3/uL (1.6-8.6); Nucleated Red Blood Cells % 0.5 %; Platelet Count (auto) 166 10^3/uL (140-450); Red Cell Distribution Width 16.7 % (11.8-14.3); White Blood Cell 18.8 10^3/uL (4.4-10.8)
[2020-10-08 05:02] LABS: INR 1.93 (0.9-1.15)
[2020-10-08] MEDS ORDERED: VASOPRESSIN 20 UNIT/ML ONE (05:04)
[2020-10-08 05:05] LABS: Albumin 1.6 g/dL (3.4-5.0); Magnesium 2.4 mg/dL (1.6-2.6); Potassium 4.7 mmol/L (3.5-5.1)
[2020-10-08] MEDS ORDERED: SODIUM BICARBONATE 8.4 % INJ 50ML VIAL IV ONE ×2 (05:12→05:15)
[2020-10-08 05:21] LABS: BUN/Creatinine Ratio 47.8; Bilirubin, Total 0.6 mg/dL (0.2-1.0); Phosphorus 8.8 mg/dL (2.5-4.90); Total Protein 4.4 g/dL (6.4-8.2)
[2020-10-08] MEDS: SODIUM BICARBONATE 50ML VIAL 150 ML in D5W 5% 1,000 ML IV SCH ×3 (05:30→20:29)
[2020-10-08] MEDS: dilTIAZem 25 MG/5 ML VIAL IV SCH ×5 (06:00→23:25)
[2020-10-08] MEDS: FUROSEMIDE 40 MG/4 ML VIAL IV SCH ×2 (06:00→17:29)
[2020-10-08] MEDS: EPINEPHrine HCL 250 ML IV SCH ×2 (06:00→16:42)
[2020-10-08] MEDS: AMIODARONE 450mg/250ml AE 250 ML IV SCH ×2 (06:15→21:15)
[2020-10-08] MEDS: ZINC SULFATE 220mg CAP or TAB PO SCH (10:00)
[2020-10-08] MEDS: CHOLECALCIFEROL (VITD3) 2,000 UNIT CAP PO SCH (10:00)
[2020-10-08] MEDS: POTASSIUM EFFERVESENT TAB 25 MEQ GT SCH ×2 (10:00→21:50)
[2020-10-08] MEDS: INSULIN LANTUS (GLARGINE) 1 /0.01ml (100units/ml) SC SCH ×2 (10:00→22:33)
[2020-10-08] MEDS: SODIUM CHLOR 0.9% PF (SALINE LOCK) 10ML VIAL/SYR IV SCH ×2 (10:00→21:50)
[2020-10-08] MEDS: DexAMETHasone SOD PHOS 10MG/1ML VIAL INJ IV SCH ×2 (10:00→22:33)
[2020-10-08] MEDS: ASCORBIC ACID 1,000 MG TAB PO SCH (10:00)
[2020-10-08] MEDS ORDERED: SODIUM BICARBONATE 50ML VIAL 150 ML in D5W 5% 1,000 ML IV ONE (11:00)
[2020-10-08] MEDS ORDERED: PHENYLEPHRINE HCL 10 MG/ML VL ONE (13:00)
[2020-10-08] MEDS ORDERED: EPINEPHrine HCL 1 MG/10 ML SYRG IV ONE (14:26)
[2020-10-08] MEDS ORDERED: SODIUM BICARBONATE 8.4% INJ 50ML SYRINGE IV ONE (14:26)
[2020-10-08] MEDS ORDERED: CALCIUM CHLOR(10%) 100MG/ML 10ML SYRINGE IV ONE (14:26)
[2020-10-08] MEDS ORDERED: NOREPINEPHRINE BITARTRATE 16 MG in SODIUM CHL 0.9% 234 ML IV SCH (17:15)
[2020-10-08] MEDS ORDERED: EPINEPHrine HCL INJECTION 8 MG in D5W 5% 242 ML IV SCH (17:15)
[2020-10-08] MEDS ORDERED: TPN PER PHARMACY IV NR ×4 (20:00)
[2020-10-08] MEDS: PHENYLEPHRINE INJ 40 MG in SODIUM CHL 0.9% 246 ML IV SCH (20:18)
[2020-10-08] MEDS ORDERED: CALCIUM GLUC 4.65meq/50ml D5AE 50 ML IV ONE (20:30)
[2020-10-08] MEDS ORDERED: PANTOPRAZOLE 40 MG/10 ML VIAL INJ IV ONE (22:15)
[2020-10-08] MEDS ORDERED: ALBUMIN 5% 250 ML IV ONE (22:15)
[2020-10-08] MEDS: PANTOPRAZOLE 40mg/50ML NS AE 50 ML IV SCH (23:23)
[2020-10-09] VITALS (10 sets, daily range): BP systolic 62–151; BP diastolic 36–64
[2020-10-09] MEDS: PHENYLEPHRINE INJ 40 MG in SODIUM CHL 0.9% 246 ML IV SCH (02:43)
[2020-10-09] MEDS: SODIUM BICARBONATE 50ML VIAL 150 ML in D5W 5% 1,000 ML IV SCH (02:43)
[2020-10-09] MEDS: PANTOPRAZOLE 40mg/50ML NS AE 50 ML IV SCH (04:32)
[2020-10-09 04:36] LABS: Eosinophils # (auto) 0.1 10 ^3/uL (0-0.8); Mean Corpuscular Volume 102.5 fL (80.0-100.0); Monocytes # (auto) 0.1 10 ^3/uL (0-1.3); Monocytes % (auto) 1.4 % (0.0-12.0); Neutrophils # (auto) 6.8 10 ^3/uL (1.6-8.6); White Blood Cell 9.6 10^3/uL (4.4-10.8)
[2020-10-09 04:39] LABS: Basophils # (auto) 0 10 ^3/uL (0-0.2); Basophils % (auto) 0.3 % (0.0-2.0); Eosinophils % (auto) 1.5 % (0.0-7.0); Hematocrit 22.8 % (36.0-46.0); Lymphocytes # (auto) 2.5 10 ^3/uL (0.4-5.4); Lymphocytes % (auto) 26.1 % (10.0-50.0); Mean Corpuscular Hemoglobin 29.3 pg (28.0-32.0); Mean Corpuscular Hgb Conc. 28.6 g/dL (32.0-36.0); Neutrophils % (auto) 70.7 % (37.0-80.0); Nucleated Red Blood Cells % 0.5 %; Platelet Count (auto) 80 10^3/uL (140-450); Red Blood Cells 2.23 10^6/uL (4.0-5.20); Red Cell Distribution Width 17.5 % (11.8-14.3)
[2020-10-09 05:04] LABS: Chloride 102 mmol/L (98-107); Sodium 149 mmol/L (136-145)
[2020-10-09] MEDS: FUROSEMIDE 40 MG/4 ML VIAL IV SCH (05:17)
[2020-10-09] MEDS: dilTIAZem 25 MG/5 ML VIAL IV SCH (05:17)
[2020-10-09] MEDS: ACCU-CHEK COMFORT CURVE STRIP VI SCH (05:28)
[2020-10-09 05:32] LABS: Albumin 1.6 g/dL (3.4-5.0); Alkaline Phosphatase 196 U/L (45-117); BUN/Creatinine Ratio 25.3; Bilirubin, Total 1.4 mg/dL (0.2-1.0); Carbon Dioxide 11 mmol/L (21-32); GFR African American 11 mL/min; GFR Non-African American 9 mL/min; Magnesium 2.6 mg/dL (1.6-2.6); Total Protein 3.6 g/dL (6.4-8.2)
[2020-10-09 05:40] LABS: Alanine Aminotransferase 8242 U/L (13-56)
[2020-10-09] MEDS: InsuLIN REG 1unit/0.01ml Soln (100units/ml) SC SCH (05:46)
[2020-10-09 06:07] LABS: Hemoglobin 6.5 g/dL (12.2-16.2)
[2020-10-09 06:08] LABS: Anion Gap 36 (5-15)
[2020-10-09 06:09] LABS: Blood Urea Nitrogen 130 mg/dL (7-18); Calcium 5.8 mg/dL (8.5-10.1); Glucose 496 mg/dL (74-106)
[2020-10-09 06:10] LABS: Phosphorus 15.4 mg/dL (2.5-4.90)
[2020-10-09] MEDS ORDERED: INSULIN LANTUS (GLARGINE) 1 /0.01ml (100units/ml) SC SCH ×2 (07:00→22:00)
[2020-10-09] MEDS ORDERED: CALCIUM CHLOR(10%) 100MG/ML 10ML SYRINGE IV ONE (20:46)
[2020-10-09] MEDS ORDERED: FLUMAZENIL 0.1 MG/ML INJ 10ML MDV IV ONE (20:46)
[2020-10-09] MEDS ORDERED: SODIUM BICARBONATE 8.4 % INJ 50ML VIAL IV ONE (20:46)
[2020-10-09] MEDS ORDERED: EPINEPHrine HCL 1 MG/10 ML SYRG IV ONE (20:46)
== END 2020-10-09 20:47 | DRG 208 ==
LOC: EDBD 16:40 → ER 16:40 → TELE 20:53 → TELE-WESTW 22:36 → ICU WEST 10-08 04:00
PROVIDERS: ADMIT Nurse Practitioner; ATTEND Internal Medicine
PROC: XW033E5 Introduction of Remdesivir Anti-infective into Peripheral Vein, Percutaneous Approach, New Technology Group 5 (ICD-10-PCS; 2020-09-25)
PROC: XW033H5 Introduction of Tocilizumab into Peripheral Vein, Percutaneous Approach, New Technology Group 5 (ICD-10-PCS; 2020-09-27)
PROC: XW13325 Transfusion of Convalescent Plasma (Nonautologous) into Peripheral Vein, Percutaneous Approach, New Technology Group 5 (ICD-10-PCS; principal; 2020-09-28)
PROC: 5A09457 Assistance with Respiratory Ventilation, 24-96 Consecutive Hours, Continuous Positive Airway Pressure (ICD-10-PCS; 2020-10-01)
PROC: 5A09457 Assistance with Respiratory Ventilation, 24-96 Consecutive Hours, Continuous Positive Airway Pressure (ICD-10-PCS; 2020-10-04)
PROC: 5A12012 Performance of Cardiac Output, Single, Manual (ICD-10-PCS; 2020-10-08)
PROC: 5A1945Z Respiratory Ventilation, 24-96 Consecutive Hours (ICD-10-PCS; 2020-10-08)
PROC: 0BH17EZ Insertion of Endotracheal Airway into Trachea, Via Natural or Artificial Opening (ICD-10-PCS; 2020-10-08)
PROC: 02HV33Z Insertion of Infusion Device into Superior Vena Cava, Percutaneous Approach (ICD-10-PCS; 2020-10-08)
PROC: B548ZZA Ultrasonography of Superior Vena Cava, Guidance (ICD-10-PCS; 2020-10-08)
PROC: 06HN33Z Insertion of Infusion Device into Left Femoral Vein, Percutaneous Approach (ICD-10-PCS; 2020-10-08)
DX: U07.1 COVID-19 (principal); J12.82 Pneumonia due to coronavirus disease 2019; J96.01 Acute respiratory failure with hypoxia; A41.89 Other specified sepsis; R65.20 Severe sepsis without septic shock; E87.1 Hypo-osmolality and hyponatremia; E44.0 Moderate protein-calorie malnutrition; Z68.41 Body mass index [BMI] 40.0-44.9, adult; E87.3 Alkalosis; D64.9 Anemia, unspecified; E66.01 Morbid (severe) obesity due to excess calories; I10 Essential (primary) hypertension; I46.9 Cardiac arrest, cause unspecified; R74.01 Elevation of levels of liver transaminase levels; D89.839 Cytokine release syndrome, grade unspecified; E78.5 Hyperlipidemia, unspecified; E11.65 Type 2 diabetes mellitus with hyperglycemia; Z88.0 Allergy status to penicillin; Z83.3 Family history of diabetes mellitus
CPT/HCPCS: 36415; 36569; 36600; 71045; 71250; 80048; 80053; 81001; 82040; 82728; 82805; 82962; 83036; 83605; 83615; 83735; 84100; 84443; 84478; 84484; 85007; 85025; 85027; 85379; 85610; 85730; 86141; 86850; 86900; 86901; 87040; 87070; 87077; 87081; 87186; 87205; 87426; 92950; 93005; 93306; 93970; 94002; 94640; 94660; C9113; G0378; J0153; J0171; J0330; J0610; J1100; J1815; J2250; J7060